=== PATIENT | male | born 1975 | race Caucasian/White ===

== ENCOUNTER 2017-05-12 04:08 | Emergency (ER) | payer OTHER ==
[~2017-05-12] VITALS: Ht 193 cm; Wt 118.8 kg
[2017-05-12] MEDS ORDERED: HYDROMORPHONE 1 MG/1 ML DISP.SYRIN IV ONE (04:30)
[2017-05-12] MEDS ORDERED: IV NORMAL SALINE 1000 ML BAG IV ONE (04:30)
[2017-05-12] MEDS ORDERED: ONDANSETRON 4 MG/2 ML VIAL IV ONE (04:30)
[2017-05-12] MEDS ORDERED: KETOROLAC TROMETHAMINE 15 MG INJ IV ONE (04:30)
--- NOTE | 2017-05-12 04:36 | NUR ---
PATIENT WOKE UP ABOUT 2HRS AGO WITH SUDDEN ONSET OF BACK PAIN RADIATING TO LEFT LOWER QAUDRANT ABDOMINAL PAIN. PT ALERT, ORIENTED X 4, NO RESP DISTRESS NOTED OR REPORTED UPON ASSESSMENT... MD AT BEDSIDE..
[2017-05-12] MEDS ORDERED: ONDANSETRON 4 MG/2 ML VIAL ONE (04:37)
[2017-05-12] MEDS ORDERED: KETOROLAC TROMETHAMINE 30 MG INJ ONE (04:37)
[2017-05-12] MEDS ORDERED: HYDROMORPHONE 2 MG/1 ML DISP.SYRIN ONE (04:37)
--- NOTE | 2017-05-12 04:39 | NUR ---
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
--- NOTE | 2017-05-12 05:29 | NUR ---
Patient discharged to home in stable conditon. Written and verbal after care instructions given. Patient verbalizes understanding of instructions. Pt walked out of ER unassisted with at side...
[2017-05-12 05:30] VITALS: BP 145/87
== END 2017-05-12 05:31 | disposition home or self-care (01) ==
LOC: ER 04:12
DX: N20.0 Calculus of kidney (principal); I10 Essential (primary) hypertension
CPT/HCPCS: A4663; J1170; J1885; J2405; J7030